=== PATIENT | female | born 1960 | race Two or more races ===

== ENCOUNTER 2024-05-16 12:13 | Outpatient (CLI) | payer OTHER, SELFPAY ==
--- OUTSIDE RECORDS SUMMARY | 2024-05-17 09:36 | XMS_ITS | Clinical Summary ---
Author Organization [employer] [facility] Address [place], [place] [address] Care Team Providers Care Instructor Warper Name Role Phone Pcp, No Primary Care Provider Unavailabl e Allergies Active Allergy Reactions Criticality Noted Date Comments Sulfa (Sulfonamide Antibiotics) Rash 03/11 Medications Medication Sig Dispensed Refills Start Date End Date Status VITAMIN D 1,000 UNIT CAP take one daily 0 09/30/2009 Active CALCIUM 500 MG TAB take two daily 0 09/30/2009 Ac tive albuterol HFA (PRO-AIR; VENTOLIN; PROVENTIL) 90 mcg/actuation inhalerIndications:Ch ronic cough Inhale 1-2 Puffs by mouth every 4 hours if needed for Wheezing (Cough). 1 Each 05/25/2022 Active Active Problems Problem Noted Date Diagnosed Date Prediabetes 02/23/2022 Overview: A1c 5.8 02/23/2022 Pap smear for cervical cancer screening 02/10/20 Overview: 02/2022 NIL/HPV Negative. PLAN: Routine screening Routine adult health maintenance 04/06/2016 Overview: Colonoscopy 03/2016 normal repeat in 10 years Reflux esophagitis 03/23/2016 Osteoporosis 03/22/2016 Overview: DXA 03/2016 Stenosing tenosynovitis 11/28/2009 Mixed hyperlipidemia 05/29/2009 Anxiety state, unspecified 03/27/2007 Immunizations Name Administration Dates Next Due Influenza, IIV3 (Age 6-35 mos) 10/21/2009 Influenza, IIV3 (Age >=3 years) 10/21/2009 Influenza, IIV4 10/24/2020,07/31/2018,07/18/2017 ,08/21/2013 Td (Age >=7 Years) 04/11/2004 Tdap 03/15/2016 Family History Medical History Relation Name Comments COPD Father Other Mother in childbi rth Cancer-breast No Family History Relation Name Status Comments Father lung disease Mother in childbi rth Son 1 Alive Son 2 Alive Son 3 Alive Son 4 Alive Son 5 Alive Social History Tobacco Use Types Packs/Day Years Used Date Smoking Tobacco: Never Smokeless Tobacco: Never Tobacco Cessation:Counseling Given: Yes Alcohol Use Standard Drinks/Week Comments No 0 (1 standard drink = 0.6 oz pur e alcohol) PHQ-2 Answer Date Recorded PHQ-2 TOTAL SCORE 2 02/16/2022 Social Connections Answer Date Recorded Frequency of Communication with Friends and Fami ly Not on file 01/01/2022 Financial Resource Strain Answer Date R ecorded Difficulty of Paying Living Expenses Not on file 01/01/2022 Difficulty of Paying Living Expenses Not on file 01/01/2022 Sex and Gender Information Value Date Recorded Sex Assigned at Not on file Gender Identity Not on file Sexual Orientation Not on file Obstetrics History Para Term AB IAB SAB Ectopic Multiple Livin g Live Births 6 5 5 0 1 0 1 0 0 5 5 Date Outcome GA Total Labor Labor/2nd/3rd Weight Sex Type Anes PTL Senait A1 A5 Name Clin SAB Term Vag Living Term Vag Living Term Vag Living Term Vag Living Term Vag Living Last Filed Vital Signs Vital Sign Reading Time Taken Comments Blood Pressure 120/72 01/14/2023 10:00 AM [employer]BILE [employer]ST[employer]ER Pulse 60 01/14/2023 10:00 AM [employer]BI[employer] IN[employer]ER Temperature 36.7 ??C (98.1 ??F) 07/24/2022 2:05 PM CD T Respiratory Rate 16 01/14/2023 10:0 0 AM [employer]ER Oxygen Saturation 95% 07/24/2022 2:05 PM CDT Inhaled Oxygen Concentration - - Weight 64.8 kg (142 lb 14.4 oz) 023 10:00 AM [employer] Height 155.9 cm (5' 1.38) 07/24/2022 2:05 PM CD T Body Mass Index 26.67 07/24/2022 2:05 PM CDT Plan of Treatment Health Maintenance Due Date Last Done Comments Zoster (shingles) series for age 50+ (1 of 2) 01/16/2008 DEXA/DXA scan for age 65+ 01/15/20232021, 03/20/2016, 05/20/2009 Pneumococcal series for age 65+ (1 of 1 - PCV) 2023 Depression screening for age 12+ 02/16/2023 02/16/2022, 02/06/2022, 03/16/2019, Additional history exists Mammogram for age 45-75 02/16/2023 02/17/20, 2018, 03/15/2016, Additional history exists COVID-19 vaccine series (2022- season) 2023 06/14/2022, 11/16/2021, 03/02/2021, Additional history exists BMI (ht and wt on same day) for age 18+ 07/24/2023 07/24/2022, 02/16/2022, 03/13/2019, Additional history exists Influenza for age 65+ 07/12/2024 10/24/2020 , 07/31/2018, 07/18/2017, Additional history exists Tetanus booster 03/15/2026 03/15/2016, 04/11/2004 Colonoscopy through age 75 04/06/2026 04/06/2016, Lipids for age 45-75 02/16/2027 02/16/2022, 2018, 03/15/2016, Additional history exists Tdap Completed 03/15/2016 Hepatitis C screening for ag e 18-79 Completed 04/17/2016, 03/25/2008, 03/25/2008 Procedures Procedure Name Priority Date/Time Associated Diagnosis Comments XR DXA BONE DENSITY 2 SITES AXIAL Routine 03/20/2022 9:17 AM CDT Osteoporosis, unspecified osteoporosis type, unspecified pathological fracture presence LIPID PANEL W REFLEX MEASURED LDL Routine 02/16/2022 12:05 PM CDT Mixed hyperlipidemia XR MAMMO IDALIA BILAT SCREEN Routine 02/16/2022 10:31 AM CDT Visit for screening mammogram ANTI HCV Routine 04/17/2016 2:43 PM CDT Family history of hepatitis C from Last 3 Months or Most Recently Relevant to Health Maintenance Results * (ABNORMAL) XR DXA BONE DENSITY 2 SITES AXIAL (03/20/2022 9:17 AM CDT) Anatomical Region Laterality Modality Spine, HIPS, HIPL, HIPR Other Impressions 03/26/2022 8:37 AM CDT Osteoporosis. RECOMMENDATIONS: The National Osteoporosis Foundation recommends pharmacologic treatment for patients with T-scores of -2.5 or less, patients with prior history of fragility fractures, or patients with 10-year probability of greater than 3% at hips or greater than 20% of suffering major osteoporotic fractures. Recommend continued optimization of calcium and vitamin D intake through dietary means and/or supplementation and regular exercise. Consider pharmacologic therapy for osteoporosis. Follow-up bone density reading in 2 years if therapy initiated to assess therapeutic efficacy. Cori Weathers PA-C [facility] 03/26/2022 Narrative 03/26/2022 8:37 AM CDT For Patients: Results are automatically released [facility] once available, in compliance with federal regulations. This means that you may see your results before your provider has had a chance to review them. Please allow 2-3 business days for your provider to comment on the results. XR DXA Bone Mineral Density (BMD) EXAM LOCATION: [address] [address] PATIENT NAME: Yaritza Kidd DATE OF : 1960 EXAM DATE: 03/20/2022 REQUESTING PROVIDER: Afshan Garcia PA GENDER AT : female HEIGHT: 5' 1.5 (02/16/2022) WEIGHT: ??145 lb 12.8 oz (02/16/2022) MENOPAUSAL STATUS: Postmenopausal RACE/ETHNICITY: White RISK FACTORS: Personal H/O Osteoporosis CURRENT MEDICATION FOR BONE LOSS: NONE INDICATION: Follow-up of existing osteoporosis COMPARISON DATE(S): 2015 DXA scans are compared to prior studies for a patient only when the two (or more) studies were performed on the same scanner. It is not possible to compare data generated on one scanner to data from another because there are not standards in DXA equipment. This applies even if the two scanners are made by the same program facilitator. PROCEDURE: Dual-energy x-ray absorptiometry performed with routine technique. Reporting is completed in the form of a T-score. The T-score represents the standard deviation from peak bone mass based on young healthy adult. A Z-score is used for diagnosis in premenopausal women, and for men under the age of 50. FINDINGS: RESULT LUMBAR SPINE L2 - L4 ??BMD: 0.792 g/cm2 T-Score: - 3.4 Z-Score: - 1.9 Change from prior in 2016: ??Decrease 7.5%. RESULTS FEMUR Left femoral neck BMD: 0.754 g/cm2 T-Score: - 2.0 Z-Score: - 0.6 Change from prior in 2016: ??Decrease 11.3%. Right femoral neck BMD: 0.702 g/cm2 T-Score: - 2.4 Z-Score: - 1.0 Change from prior in 2016: ??Decrease 10.9%. Left hip BMD: 0.891 g/cm2 T-Score: - 0.9 Z-Score: + 0.2 Change from prior in 2016: ??Decrease 6.5%. Right hip BMD: 0.807 g/cm2 T-Score: - 1.6 Z-Score: - 0.5 Change from prior in 2016: ??Decrease 9.5%. WHO criteria: Normal: T-score at or above -1 SD Osteopenia: T-score between -1.1 and -2.4 SD Osteoporosis: T-score at or below -2.5 SD FRAX RISK CALCULATION (USED FOR OSTEOPENIA ONLY): 10-year probability of major osteoporotic fracture: 12.5%. 10-year probability of hip fracture: 2.4%. Afshan COLBY DEXA * (ABNORMAL) LIPID PANEL W REFLEX MEASURED LDL (02/16/2022 12:05 PM CDT) [facility] CHOLESTEROL,TOTAL 246(H) 100 - 199 mg/dL 02/16/2022 11:20 PM CDT [facility] TRIGLYCERIDES 116 <150 mg/dL 02/16/2022 11:20 PM CDT [facility] HDL CHOLESTEROL 75 >40 mg/dL 11:20 PM CDT [facility] NON-HDL CHOLESTEROL 171(H) <145 mg/dl 02/16/2022 11:20 PM CDT [facility] CHOL/HDL RATIO 3.28 <4.50 02/16/2022 11:20 PM CDT [facility] LDL CHOLESTEROL 148(H) <=130 mg/dL 02/16/2022 11:20 PM CDT [facility] VLDL CHOLESTEROL 23 <=30 mg/dL 02/16/2022 11:20 PM CDT [facility] PROVIDER ORDERED STATUS RANDOM 02/16/2022 11:20 PM CDT [facility] Blood BLOOD SPECIMEN / Unknown Venipuncture / Unknown 02/16/2022 12:05 PM CDT 02/16/2022 12:05 PM CDT Afshan COLBY CHEMISTRY [facility] [address] [place] [address], [place] * XR MAMMO IDALIA BILAT SCREEN (02/16/2022 10:31 AM CDT) Anatomical Region Laterality Modality BREASTS, Breast Left, Breast Right Bilateral Mammography Impressions 02/16/2022 3:43 PM CDT ??There is no radiographic evidence for malignancy. ??Recommend annual mammograms. MAMMOGRAM ASSESSMENT: ??ACR 1 Negative PATIENTS: You will also receive a letter with your examination results in an easy to read format. ??If you have questions about your results, please contact your referring provider. Narrative 02/16/2022 3:43 PM CDT For Patients: As a result of the Century Cures Act, medical imaging exams and procedure reports are released immediately into your electronic medical record. You may view this report before your referring provider. If you have questions, please contact your health care provider. XR MAMMO IDALIA BILAT SCREEN [[id number]] CLINICAL HISTORY: ??This is an asymptomatic 62 y.o. patient. INDICATION FOR EXAM: Mammogram Screening. TECHNIQUE: CC & MLO views were obtained. ??This study was evaluated with the assistance of Computer-Aided Detection. Breast Tomosynthesis was used in interpretation. COMPARISON FILM: Yes 01/15/18 [facility] 03/15/16 [facility] FINDINGS: ??The breasts have scattered areas of fibroglandular density. There are no dominant masses, suspicious micro calcifications or areas of architectural distortion. Afshan COLBY MAMMO * ANTI HCV (04/17/2016 2:43 PM CDT) HEPATITIS C ANTIBODY Non-Reacti ve Non-Reacti ve 04/17/2016 8:08 PM CDT [facility] Blood specimen (specimen) BLOOD SPECIMEN / Unknown Venipuncture / Unknown 04/17/2016 2:43 PM CDT 04/17/2016 2:43 PM CDT Narrative [facility] - 04/17/2016 8:08 PM CDT Antibodies to HCV not detected; does not exclude the possibility of exposure to HCV. Imelda Giles NP [facility] [address] [place] [address], [place] from Last 3 Months or Most Recently Relevant to Health Maintenance Care Teams Instructor Warper Relationship Specialty Start Date End Date Pcp, No . PCP - General 01/14/23
== END 2024-05-16 12:14 | disposition home or self-care (01) ==
LOC: NFLDREF 05-17 09:34
PROVIDERS: Visit Provider Nurse Practitioner
DX: N30.01 Acute cystitis with hematuria (principal)
CPT/HCPCS: 87086